=== PATIENT | female | born 1980 | race Caucasian/White ===

== ENCOUNTER 2016-12-19 05:18 | Emergency (ER) | payer OTHER ==
[~2016-12-19] VITALS: Ht 152.4 cm; Wt 64.0 kg
[~2016-12-19 05:18] MED LIST: ACET325S PO; ACET500C5 PO; ALBU8.5H3 INH; AZIT250T6 PO; AZIT250T94 PO; BACTDS PO; CIPR500T4 PO; D-ME473S18 PO; FLUT9.9S NASAL; HYDR-906 PO; HYDR28OI7 TP; IBUP-1542 PO; IBUP-1706 PO; NAPR-260 PO; PANT40TA3 PO; POLY10DR19 RIGHT EYE; UDROBDM PO
[2016-12-19 05:21] VITALS: Ht 152.4 cm; Wt 64.0 kg
[2016-12-19] MEDS ORDERED: SOD CHLORIDE 0.9% 1,000 ML IV ONE (06:00)
[2016-12-19] MEDS ORDERED: DIPHENHYDRAMINE 50 MG INJ IV ONE (06:00)
[2016-12-19] MEDS ORDERED: METOCLOPRAMIDE 10 MG INJ IV ONE (06:00)
[2016-12-19 06:15] LABS: ADD SCAN DIFF NO
[2016-12-19 06:27] LABS: BASOPHILS % 0.4 % (0.0-2.0); EOSINOPHILS # 0.1 10^3/ul (0.0-0.5); HEMATOCRIT 36.8 % (37.0-47.0); HEMOGLOBIN 13.1 g/dl (12.0-16.0); LYMPHOCYTES # 2.5 10^3/ul (0.8-2.9); LYMPHOCYTES % 24.9 % (15.0-51.0); MEAN CORPUSCULAR HEMOGLOBIN 30.1 pg (29.0-33.0); MEAN CORPUSCULAR HGB CONC 35.6 g/dl (32.0-37.0); MEAN CORPUSCULAR VOLUME 84.6 fl (82.0-101.0); MEAN PLATELET VOLUME 10.5 fl (7.4-10.4); MONOCYTE # 0.7 10^3/ul (0.3-0.9); NEUTROPHIL # 6.8 10^3/ul (1.6-7.5); NEUTROPHILS % 66.3 % (39.0-77.0); PLATELET COUNT 308 10^3/UL (140-415); RED BLOOD COUNT 4.35 10^6/ul (4.20-5.40); RED CELL DISTRIBUTION WIDTH 12.4 % (11.5-14.5); WHITE BLOOD COUNT 10.2 10^3/ul (4.8-10.8)
[2016-12-19 06:37] LABS: ADD UMIC YES; URINE BLOOD (Dip) 1+ (NEGATIVE); URINE COLOR LT. YELLOW (YELLOW); URINE GLUCOSE (Dip) NEGATIVE (NEGATIVE); URINE KETONES (Dip) 3+ (NEGATIVE); URINE LEUKOCYTE ESTERASE (Dip) 1+ (NEGATIVE); URINE NITRITE (Dip) NEGATIVE (NEGATIVE); URINE UROBILINOGEN (Dip) 0.2 E.U./dL (0.1-1.0)
[2016-12-19 06:40] LABS: ALBUMIN 4.5 g/dl (3.3-4.9); POTASSIUM 3.6 mmol/L (3.5-5.1)
[2016-12-19 06:42] LABS: CREATININE 0.6 mg/dl (0.44-1.00)
[2016-12-19 06:43] LABS: ALBUMIN/GLOBULIN RATIO 1.15; BILIRUBIN,INDIRECT 0.7 mg/dl (0-1.1); BILIRUBIN,TOTAL 0.7 mg/dl (0.2-1.3); CALCIUM 9.6 mg/dl (8.4-10.2); TOTAL PROTEIN 8.4 g/dl (6.1-8.1)
[2016-12-19 06:56] LABS: URINE BILIRUBIN (Dip) NEGATIVE (NEGATIVE)
[2016-12-19 06:59] LABS: URINE TOTAL PROTEIN (Dip) 1+ (NEGATIVE)
[2016-12-19 07:02] LABS: BACTERIA,URINE MANY; SQUAMOUS EPITHELIAL CELL,UR MANY; URINE RBCS 0-2 /HPF (0)
--- NOTE | 2016-12-19 07:23 | RADRPT ---
PROCEDURE: First trimester obstetrical ultrasound. CLINICAL INDICATION: , pelvic pain TECHNIQUE: Transabdominal motta scale and color Doppler ultrasound of the uterus . The patient ref used transvaginal examination. COMPARISON: Pelvic ultrasound 09/24/2016 FINDINGS: A single intrauterine gestation is present within the uterine fundus. No evidence of extrauterine gestation. Mean sac diameter: 2.58 cm [place]-rump length: 1.77 cm heart rate: 179 Beats per minute A small subchorionic hemorrhage is present. 1.5 cm intramural and 2.4 cm probable subserosal pedunculated fibroid again noted. Ovaries are not identified. Free fluid: None. IMPRESSION: Single intrauterine gestation with an estimated gestational age of 8 weeks 0 days by ultrasound indira rader. Small subchorionic hemorrhage. RPTAT: AADD .Bean Dash MD, MD Date Time Electronically viewed and signed by .Bean Dash MD, on 12/19/2016 07:22 .B/
--- NOTE | 2016-12-19 07:43 | ERD ---
ER Documentation Chief Complaint Date/Time DATE: 12/19/16 TIME: 07:42 Chief Complaint 8 wks , painful urination x 1 month HPI 36-year-old female currently 8 weeks gestation presents the emergency department complaining of dysuria, urinary frequency 1 month. Patient states that she was seen by her primary care physician who prescribed her antibiotics for UTI however she was unable to begin antibiotic therapy as she was too nauseated to take the medication. Patient also reports intermittent epigastric burning 4 out of 10 pain. Patient states she has a history of gastritis and has experienced these symptoms many times before. Patient is not currently taking any thing to control the symptoms. Patient states she has also not been taking any medication to control her nausea. Patient denies any vaginal bleeding, fever, chills, diarrhea, other abdominal pain, back pain, lethargy, dizziness, edema, or headache. ROS All systems reviewed and are negative except as per history of present illness. Medications Home Meds Active Scripts Cephalexin* (Cephalexin* Susp) 250 Mg/5 Ml Susp.recon, 10 ML PO Q8 for 7 Days, BOTTLE Prov:ALEXUS MENDEZ PA-C 12/19/16 Ondansetron (Ondansetron Odt) 4 Mg Tab.rapdis, 4 MG PO Q6H Y for NAUSEA AND/OR VOMITING, #30 TAB Prov:ALEXUS MENDEZ PA-C 12/19/16 Ranitidine Hcl* (Zantac*) 150 Mg Tablet, 75 MG PO BID Y for EPIGASTRIC PAIN, # 30 TAB Prov:ALEXUS MENDEZ PA-C 12/19/16 Sucralfate* (Carafate*) 1 Gm Tab, 1 GM PO QID for 28 Days, TAB Prov:ALEXUS MENDEZ PA-C 12/19/16 Hydrocodone/Acetaminophen ([place] 5-325 Tablet) 1 Each Tablet, 1 TAB PO Q6H Y for PAIN, #7 TAB Prov:ELAYNE BALLESTEROS PA-C 09/24/16 Naproxen* (Naprosyn*) 500 Mg Tablet, 500 MG PO BID Y for PAIN AND/OR INFLAMMATION, #30 TAB Prov:ELAYNE BALLESTEORS PA-C 09/24/16 Albuterol Sulfate* (Proair HFA*) 8.5 Gm Hfa.aer.ad, 2 PUFF INH Q4, #1 INHALER Prov:XENIA MOORE Therese 09/17/16 Dextromethorphan Hb-Promethazine Hcl (Promethazine DM Syrup) 473 Ml Syrup, 10 ML PO Q6H Y for COUGH, #8 OZ Prov:XENIA MOORE There[place] 09/17/16 Acetaminophen* (Tylophen*) 500 Mg Capsule, 2 CAP PO Q8H Y for PAIN AND OR ELEVATED TEMP, #20 CAP Prov:TERESA,XENIA C 09/17/16 Polymyxin B Sulfate-TMP* (Polymyxin B-TMP Eye Drops*) 10 Ml Drops, 1 DROP RIGHT EYE QID for 7 Days, EA Prov:QUE WEAVER MD 07/07/16 Azithromycin* (Zithromax*) 250 Mg Tablet, 250 MG PO .ZPACK DIRECTED, #6 TAB TAKE 500 MG (2 TABS) THE FIRST DAY THEN 250 MG (1 TAB) DAYS 2-5 Prov:QUE WEAVER MD 07/07/16 Fluticasone Propionate (Flonase Allergy Relief) 9.9 Ml [place].susp, 1 SPRAY NASAL DAILY for 10 Days, #1 BOTTLE TO EACH NOSTRIL Prov:QUE WEAVER MD 07/07/16 Ibuprofen* (Motrin*) 600 Mg Tab, 600 MG PO Q6, #15 TAB Prov:QUE WEAVER MD 07/07/16 Pantoprazole* (Protonix*) 40 Mg Tablet.dr, 40 MG PO DAILY, #20 TAB Prov:KAREY RIVERA MD 12/08/15 Ciprofloxacin Hcl* (Ciprofloxacin Hcl*) 500 Mg Tablet, 500 MG PO BID for 7 Days , TAB Prov:KAREY RIVERA MD 12/08/15 Azithromycin* (Azithromycin*) 250 Mg Tablet, 250 MG PO DAILY for If not better in 2-3 days for 4 Days, TAB 0 Refills 2 tablets by mouth on day 1 and 1 tablet by mouth on days 2-4 Prov:REGINALD SULLIVAN PA-C 08/07/15 Guaifenesin-Dextromethorphan* (Robitussin* DM) 100MG/10MG/5ML Syrup, 10 ML PO Q6H Y for COUGH, #240 ML Prov:REGINALD SULLIVAN PA-C 08/07/15 Ibuprofen* Susp (Motrin* Susp) 20 Mg/Ml Susp, 10 ML PO Q6H Y, #240 ML 0 Refills Prov:REGINALD SULLIVAN PA-C 08/07/15 Acetaminophen* (Acetaminophen* Susp) 325 Mg/10.15 Ml Solution, 15 ML PO Q6 Y for PAIN OR TEMP ABOVE 38C, #240 ML 0 Refills Prov:REGINALD SULLIVAN PA-C 08/07/15 Hydrocortisone Acetate (Hydrocortisone) 30 Gm Oint..gm., 30 GM TP BID, #1 Apply to affected area twice a day Prov:DANY BEAUCHAMP PA-C 04/25/15 Sulfamethoxazole-Trimethoprim* (Bactrim* DS) 800-160 Mg Tab, 1 TAB PO BID for 10 Days, TAB Prov:DANY BEAUCHAPM PA-C 04/25/15 Discontinued Scripts Cephalexin* (Keflex*) 500 Mg Capsule, 500 MG PO QID for 7 Days, CAP Prov:ALEXUS MENDEZ PA-C 12/19/16 Allergies Allergies: Coded Allergies: Penicillins (Verified Allergy, Unknown, 09/17/16) PMhx/Soc Medical and Surgical Hx: pt denies Medical Hx, pt denies Surgical Hx Hx Alcohol Use: No Hx Substance Use: No Hx Tobacco Use: No Smoking Status: Never smoker Physical Exam Vitals Vital Signs Date Time Temp Pulse Resp B/P Pulse Ox O2 Delivery O2 Flow Rate FiO2 12/19/16 05:21 98.9 65 20 120/65 99 Physical Exam Const: Well-developed, well-nourished, in no acute distress Head: Atraumatic Eyes: Normal Conjunctiva ENT: Normal External Ears, Nose and Mouth. Neck: Full range of motion..~ No meningismus. Resp: Clear to auscultation bilaterally Cardio: Regular rate and rhythm, no murmurs Abd: Soft, non tender, non distended. Normal bowel sounds Skin: No petechiae or rashes Back: No midline or flank tenderness Ext: No cyanosis, or edema Neur: Awake and alert Psych: Normal Mood and Affect Result Diagram: 12/19/16 0604 12/19/16 0604 Results 24 hrs Laboratory Tests Test 12/19/16 06:00 12/19/16 06:04 Urine Color LT. YELLOW Urine Clarity CLEAR Urine pH 5.5 Urine Specific [place] >=1.030 Urine Ketones 3+ Urine Nitrite NEGATIVE Urine Bilirubin NEGATIVE Urine Urobilinogen 0.2 E.U./dL Urine Leukocyte Esterase 1+ Urine Microscopic RBC 0-2/HPF Urine Microscopic WBC 10-25/HPF Urine Squamous Epithelial Cells MANY Urine Bacteria MANY Urine Hyaline Casts OCCASIONAL Urine Fine Granular Casts OCCASIONAL Urine Hemoglobin 1+ Urine Glucose NEGATIVE% Urine Total Protein 1+ White Blood Count 10.210^3/ul Red Blood Count 4.3510^6/ul Hemoglobin 13.1g/dl Hematocrit 36.8% Mean Corpuscular Volume 84.6fl Mean Corpuscular Hemoglobin 30.1pg Mean Corpuscular Hemoglobin Concent 35.6g/dl Red Cell Distribution Width 12.4% Platelet Count 66481^3/UL Mean Platelet Volume 10.5fl Neutrophils % 66.3% Lymphocytes % 24.9% Monocytes % 7.0% Eosinophils % 1.0% Basophils % 0.4% Nucleated Red Blood Cells % 0.0/100WBC Neutrophils # 6.810^3/ul Lymphocytes # 2.510^3/ul Monocytes # 0.710^3/ul Eosinophils # 0.110^3/ul Basophils # 0.010^3/ul Nucleated Red Blood Cells # 0.010^3/ul Sodium Level 135mmol/L Potassium Level 3.6mmol/L Chloride Level 97mmol/L Carbon Dioxide Level 23mmol/L Anion Gap 19 Blood Urea Nitrogen 10mg/dl Creatinine 0.60mg/dl Glucose Level 85mg/dl Calcium Level 9.6mg/dl Total Bilirubin 0.7mg/dl Direct Bilirubin 0.00mg/dl Indirect Bilirubin 0.7mg/dl Aspartate Amino Transf (AST/SGOT) 25IU/L Alanine Aminotransferase (ALT/SGPT) 34IU/L Alkaline Phosphatase 72IU/L Total Protein 8.4g/dl Albumin 4.5g/dl Globulin 3.90g/dl Albumin/Globulin Ratio 1.15 Beta HCG, Quantitative 370317.0mIU/ml Current Medications Medications (Trade) Dose Ordered Sig/Tracy Route PRN Reason Start Time Stop Time Status Last Admin Dose Admin Sodium Chloride (NS) 1,000 ml @ 1,000 mls/hr Q1H ONCE IV 12/19/16 06:00 12/19/16 06:59 DC 12/19/16 06:04 Metoclopramide HCl (Reglan) 10 mg ONCE ONCE IV 12/19/16 06:00 12/19/16 06:01 DC 12/19/16 06:03 Diphenhydramine HCl (Benadryl) 25 mg ONCE ONCE IV 12/19/16 06:00 12/19/16 06:01 DC 12/19/16 06:04 Procedures/MDM PROCEDURE: First trimester obstetrical ultrasound. CLINICAL INDICATION: , pelvic pain TECHNIQUE: Transabdominal motta scale and color Doppler ultrasound of the uterus . The patient refused transvaginal examination. COMPARISON: Pelvic ultrasound 09/24/2016 FINDINGS: A single intrauterine gestation is present within the uterine fundus. No evidence of extrauterine gestation. Mean sac diameter: 2.58 cm [place]-rump length: 1.77 cm heart rate: 179 Beats per minute A small subchorionic hemorrhage is present. 1.5 cm intramural and 2.4 cm probable subserosal pedunculated fibroid again noted. Ovaries are not identified. Free fluid: None. IMPRESSION: Single intrauterine gestation with an estimated gestational age of 8 weeks 0 days by ultrasound criteria. Small subchorionic hemorrhage. RPTAT: AADD .Bean Dash MD, MD Date Time Electronically viewed and signed by .Bean Dash MD, MD on 12/19/2016 07:22 .B/ CC: DANY BEAUCHAMP PA-C Patient received a bolus of fluid as well as Benadryl and Reglan while in the emergency department. Patient reports significant improvement of symptoms. Vital signs reviewed. Patient is normotensive, non-tachycardic, non-hypoxic and afebrile. CBC showed no evidence of systemic infection or severe anemia. CMP showed no evidence of electrolyte abnormalities, severe acidosis, alkalosis , renal failure, or liver disease. UA showed no evidence of acute leukocytosis and hematuria. Vaginal ultrasound revealed single intrauterine viable estimated 8 weeks gestation. I have low suspicion for ectopic , spontaneous , ovarian torsion, small bowel obstruction, perforated ulcer, tubo-ovarian abscess, pelvic inflammatory disease, major systemic infection or sepsis. Patient well-appearing and reports improvement of symptoms posttreatment in the emergency department. I will provide the patient with antinausea medications so that she can administer antibiotic therapy for her urinary tract infection. Patient to follow-up with primary care and [facility] in 1-2 days. I will also supply the patient with Carafate for symptomatic relief of her GERD symptoms. Patient originally stated an allergy to penicillin however when asked to describe her allergy she noted a mild itchy rash on her hands. Patient denied any history of anaphylaxis, facial swelling. I discussed the potential for rash and itchiness with Keflex as well. Patient instructed to take Benadryl as needed. Based on patient's history of present illness and physical examination the decision was made to discharge. The patient was re-evaluated after ED treatment and stabilizing measures, and symptoms have improved. There is no evidence of life threatening injuries or illnesses at this time. On re-examination, patient resting in no distress, stable vital signs, reports feeling better and safe for discharge with outpatient follow up with PMD in 1-2 days. Patient given return precautions. ALEXUS MENDEZ PA-C Dec 19, 2016 07:43
[2016-12-19] MEDS ORDERED: ONDA4TAB14 PO (07:57)
[2016-12-19] MEDS ORDERED: RANI150T9 PO (07:57)
[2016-12-19] MEDS ORDERED: CEPH-443 PO (07:57)
[2016-12-19] MEDS ORDERED: SUCR1TAB56 PO (07:57)
[2016-12-19] MEDS ORDERED: CEPH250S33 PO (07:59)
[2016-12-19 08:01] VITALS: BP 102/56; PULSE 79; RESP 18; TEMP 98.2
== END 2016-12-19 08:10 | disposition home or self-care (01) ==
LOC: FTE 05:18
DX: O99.89 Other specified diseases and conditions complicating pregnancy, childbirth and the puerperium (principal); R30.0 Dysuria; R10.2 Pelvic and perineal pain; Z3A.08 8 weeks gestation of pregnancy
CPT/HCPCS: 36415; 76801; 80053; 81001; 84702; 85025; 86900; 86901; 87086; 96361; 96374; 96375; J1200; J2765; J7030; Z7502; 81003

== ENCOUNTER 2016-12-29 13:08 | Emergency (ER) | payer OTHER ==
[~2016-12-29] VITALS: Ht 157.5 cm; Wt 67.7 kg
[~2016-12-29 13:08] MED LIST changes: +CEPH250S33 PO; +ONDA4TAB14 PO; +RANI150T9 PO; +SUCR1TAB56 PO
[2016-12-29 13:12] VITALS: Ht 157.5 cm; Wt 67.7 kg
[2016-12-29] MEDS ORDERED: METOCLOPRAMIDE 10 MG INJ IV STA (14:38)
[2016-12-29] MEDS ORDERED: SOD CHLORIDE 0.9% 1,000 ML IV STA ×2 (14:38→16:57)
[2016-12-29] MEDS: ACETAMINOPHEN 500 MG TAB PO STA ×2 (14:38→15:46)
[2016-12-29] MEDS ORDERED: METO10TA92 PO (14:50)
--- NOTE | 2016-12-29 14:53 | ERD ---
ER Documentation Chief Complaint Date/Time DATE: 12/29/16 TIME: 14:50 Chief Complaint VOMITING, 10 WEEKS (PAIGE SHETTY PA-C) HPI Patient is a 36-year-old female, , approximately 10 weeks , presents emergency department with nausea, vomiting and diarrhea. Patient states that she has had nausea and vomiting throughout her . Patient states that she feels nauseous today however she denies any vomiting today. Patient states she last vomited yesterday. She reports vomiting throughout her . Patient states she is not taking any Reglan given the "side effects. " Patient also states she has had 2 days of nonbloody nonmucousy diarrhea. Patient states that approximately 4-5 episodes per day. Patient states she has a decreased appetite. Patient states she last ate a meal 3 days ago. Patient denies any cough, rhinorrhea, sore throat, ear pain. Patient does report generalized body aches and back pain. Patient denies any saddle anesthesia, urinary incontinence or stool incontinence. Patient denies any recent falls or trauma. Patient states that she has been seeing her RN DELIVERY routinely. Patient states 1 month ago she was diagnosed with a UTI. Patient is requesting that her urine rechecked for resolution of her symptoms. (PAIGE SHETTY PA-C) ROS All systems reviewed and are negative except as per history of present illness. (PAIGE SHETTY PA-C) Medications Home Meds Active Scripts Cephalexin* (Keflex*) 500 Mg Capsule, 500 MG PO QID for 7 Days, CAP Prov:PAIGE SHETTY PA-C 12/29/16 Metoclopramide* (Reglan*) 10 Mg Tablet, 10 MG PO Q6 Y for NAUSEA AND/OR VOMITING , #10 TAB Prov:PAIGE SHETTY PA-C 12/29/16 Cephalexin* (Cephalexin* Susp) 250 Mg/5 Ml Susp.recon, 10 ML PO Q8 for 7 Days, BOTTLE Prov:ALEXUS MENDEZ PA-C 12/19/16 Ondansetron (Ondansetron Odt) 4 Mg Tab.rapdis, 4 MG PO Q6H Y for NAUSEA AND/OR VOMITING, #30 TAB Prov:ALEXUS MENDEZ PA-C 12/19/16 Ranitidine Hcl* (Zantac*) 150 Mg Tablet, 75 MG PO BID Y for EPIGASTRIC PAIN, # 30 TAB Prov:ALEXUS MENDEZ PA-C 12/19/16 Sucralfate* (Carafate*) 1 Gm Tab, 1 GM PO QID for 28 Days, TAB Prov:ALEXUS MENDEZ PA-C 12/19/16 Hydrocodone/Acetaminophen ([place] 5-325 Tablet) 1 Each Tablet, 1 TAB PO Q6H Y for PAIN, #7 TAB Prov:ELAYNE BALLESTEROS PA-C 09/24/16 Naproxen* (Naprosyn*) 500 Mg Tablet, 500 MG PO BID Y for PAIN AND/OR INFLAMMATION, #30 TAB Prov:ELAYNE BALLESTEROS PA-C 09/24/16 Albuterol Sulfate* (Proair HFA*) 8.5 Gm Hfa.aer.ad, 2 PUFF INH Q4, #1 INHALER Prov:XENIA MOORE 09/17/16 Dextromethorphan Hb-Promethazine Hcl (Promethazine DM Syrup) 473 Ml Syrup, 10 ML PO Q6H Y for COUGH, #8 OZ Prov:XENIA MOORE 09/17/16 Acetaminophen* (Tylophen*) 500 Mg Capsule, 2 CAP PO Q8H Y for PAIN AND OR ELEVATED TEMP, #20 CAP Prov:XENIA MOORE 09/17/16 Polymyxin B Sulfate-TMP* (Polymyxin B-TMP Eye Drops*) 10 Ml Drops, 1 DROP RIGHT EYE QID for 7 Days, EA Prov:QUE CELESTE MD 07/07/16 Azithromycin* (Zithromax*) 250 Mg Tablet, 250 MG PO .ZPACK DIRECTED, #6 TAB TAKE 500 MG (2 TABS) THE FIRST DAY THEN 250 MG (1 TAB) DAYS 2-5 Prov:QUE CELESTE MD 07/07/16 Fluticasone Propionate (Flonase Allergy Relief) 9.9 Ml [place].susp, 1 SPRAY NASAL DAILY for 10 Days, #1 BOTTLE TO EACH NOSTRIL Prov:QUE CELESTE MD 07/07/16 Ibuprofen* (Motrin*) 600 Mg Tab, 600 MG PO Q6, #15 TAB Prov:QUE CELESTE MD 07/07/16 Pantoprazole* (Protonix*) 40 Mg Tablet.dr, 40 MG PO DAILY, #20 TAB Prov:KAREY IRVERA MD 12/08/15 Ciprofloxacin Hcl* (Ciprofloxacin Hcl*) 500 Mg Tablet, 500 MG PO BID for 7 Days , TAB Prov:KAREY RIVERA MD 12/08/15 Azithromycin* (Azithromycin*) 250 Mg Tablet, 250 MG PO DAILY for If not better in 2-3 days for 4 Days, TAB 0 Refills 2 tablets by mouth on day 1 and 1 tablet by mouth on days 2-4 Prov:REGINALD SULLIVAN PA-C 08/07/15 Guaifenesin-Dextromethorphan* (Robitussin* DM) 100MG/10MG/5ML Syrup, 10 ML PO Q6H Y for COUGH, #240 ML Prov:REGINALD SULLIVAN PA-C 08/07/15 Ibuprofen* Susp (Motrin* Susp) 20 Mg/Ml Susp, 10 ML PO Q6H Y, #240 ML 0 Refills Prov:REGINALD SULLIVAN PA-C 08/07/15 Acetaminophen* (Acetaminophen* Susp) 325 Mg/10.15 Ml Solution, 15 ML PO Q6 Y for PAIN OR TEMP ABOVE 38C, #240 ML 0 Refills Prov:REGINALD SULLIVAN PA-C 08/07/15 Hydrocortisone Acetate (Hydrocortisone) 30 Gm Oint..gm., 30 GM TP BID, #1 Apply to affected area twice a day Prov:DANY ASENCIO PA-C 04/25/15 Sulfamethoxazole-Trimethoprim* (Bactrim* DS) 800-160 Mg Tab, 1 TAB PO BID for 10 Days, TAB Prov:DANY ASENCIO PA-C 04/25/15 Allergies Allergies: Coded Allergies: Penicillins (Verified Allergy, Unknown, 09/17/16) PMhx/Soc Medical and Surgical Hx: pt denies Medical Hx, pt denies Surgical Hx Hx Alcohol Use: No Hx Substance Use: No Hx Tobacco Use: No Smoking Status: Never smoker (PAIGE SHETTY PA-C) FmHx Family History: No diabetes (PAIGE SHETTY PA-C) Physical Exam Vitals Vital Signs Date Time Temp Pulse Resp B/P Pulse Ox O2 Delivery O2 Flow Rate FiO2 12/29/16 19:34 98.1 89 22 102/61 99 Room Air 12/29/16 18:04 90 15 106/47 100 Room Air 12/29/16 13:12 97.9 74 20 122/72 99 (DANY ASENCIO PA-C) Physical Exam GENERAL: Well-developed, well-nourished female. Appears in no acute distress. Speaking in full sentences HEAD: Normocephalic, atraumatic. EYES: Pupils are equally reactive bilaterally. EOMs grossly intact. No conjunctival erythema. No Conjunctival pallor ENT: Moist mucous membranes. No uvula deviation. No kissing tonsils. NECK: Supple. No meningismus. Normal range of motion of the neck. LUNG: Clear to auscultation bilaterally. No rhonchi, wheezing, rales or coarse breath sounds. HEART: Regular rate and rhythm. No murmurs, rubs or gallops. ABDOMEN: No scars, ecchymosis or rashes noted. Soft, nontender, and nondistended. Positive bowel sounds in all four quadrants. No rebound tenderness , no guarding. (-) McBurney's point tenderness. No CVA tenderness. BACK: No midline tenderness. Tender to palpation of bilateral paraspinous muscles of lumbar region. EXTREMITIES: Equal pulses bilaterally. No peripheral clubbing, cyanosis or edema. No unilateral leg swelling. NEUROLOGIC: Alert and oriented. Moving all four extremities without any difficulty. Normal speech. Steady gait. SKIN: Normal color. Warm and dry. No rashes or lesions. (PAIGE SHETTY PA-C) Result Diagram: 12/29/16 1555 12/29/16 1555 Results 24 hrs Laboratory Tests Test 12/29/16 15:55 White Blood Count 9.110^3/ul Red Blood Count 4.3410^6/ul Hemoglobin 13.0g/dl Hematocrit 35.7% Mean Corpuscular Volume 82.3fl Mean Corpuscular Hemoglobin 30.0pg Mean Corpuscular Hemoglobin Concent 36.4g/dl Red Cell Distribution Width 12.6% Platelet Count 42729^3/UL Mean Platelet Volume 10.7fl Neutrophils % 68.6% Lymphocytes % 19.4% Monocytes % 10.3% Eosinophils % 1.0% Basophils % 0.3% Nucleated Red Blood Cells % 0.0/100WBC Neutrophils # 6.210^3/ul Lymphocytes # 1.810^3/ul Monocytes # 0.910^3/ul Eosinophils # 0.110^3/ul Basophils # 0.010^3/ul Nucleated Red Blood Cells # 0.010^3/ul Urine Color YELLOW Urine Clarity SLIGHTLY CLOUDY Urine pH 6.0 Urine Specific [place] 1.025 Urine Ketones 40 Urine Nitrite NEGATIVE Urine Bilirubin NEGATIVE Urine Urobilinogen 0.2 E.U./dL Urine Leukocyte Esterase 3+ Urine Microscopic RBC 2-5/HPF Urine Microscopic WBC >50/HPF Urine Squamous Epithelial Cells MANY Urine Bacteria MODERATE Urine Hemoglobin 1+ Urine Glucose NEGATIVE% Urine Total Protein 1+ Sodium Level 130mmol/L Potassium Level 2.8mmol/L Chloride Level 89mmol/L Carbon Dioxide Level 23mmol/L Anion Gap 21 Blood Urea Nitrogen 5mg/dl Creatinine 0.60mg/dl Glucose Level 99mg/dl Calcium Level 9.4mg/dl Magnesium Level 2.1mg/dl Total Bilirubin 0.3mg/dl Direct Bilirubin 0.00mg/dl Indirect Bilirubin 0.3mg/dl Aspartate Amino Transf (AST/SGOT) 58IU/L Alanine Aminotransferase (ALT/SGPT) 90IU/L Alkaline Phosphatase 95IU/L Total Protein 8.8g/dl Albumin 4.7g/dl Globulin 4.10g/dl Albumin/Globulin Ratio 1.14 Lipase 134U/L Beta HCG, Quantitative 289485.0mIU/ml Current Medications Medications (Trade) Dose Ordered Sig/Tracy Route PRN Reason Start Time Stop Time Status Last Admin Dose Admin Sodium Chloride (NS) 1,000 ml @ 1,000 mls/hr Q1H STAT IV 12/29/16 14:38 12/29/16 17:07 DC 12/29/16 15:45 Metoclopramide HCl (Reglan) 10 mg ONCE STAT IV 12/29/16 14:38 12/29/16 14:41 DC 12/29/16 15:46 Diphenhydramine HCl (Benadryl) 25 mg ONCE ONCE IV 12/29/16 15:00 12/29/16 15:01 DC Acetaminophen (Tylenol Tab) 1,000 mg ONCE STAT PO 12/29/16 14:38 12/29/16 14:41 DC Potassium Chloride (Klor-Con 20) 40 meq ONCE STAT PO 12/29/16 16:35 12/29/16 16:41 DC 12/29/16 16:51 Cephalexin (Keflex) 500 mg ONCE ONCE PO 12/29/16 17:00 12/29/16 17:02 DC 12/29/16 16:53 Potassium Chloride 20 meq 20 meq ONCE STAT PO 12/29/16 16:57 12/29/16 17:07 DC 12/29/16 17:46 Sodium Chloride 1,000 ml @ 1,000 mls/hr Q1H STAT IV 12/29/16 16:57 12/29/16 17:56 DC Sodium Chloride (NS) 1,000 ml @ 1,000 mls/hr Q1H ONCE IV 12/29/16 17:00 12/29/16 17:59 DC 12/29/16 17:58 (DANY ASENCIO PA-C) Procedures/MDM ED COURSE: The patient was stable throughout ED course. I kept the patient and/or family informed of laboratory and diagnostic imaging results throughout the ED course. EKG: Read by Dr. Celeste, attending physician. EKG shows normal sinus rhythm at a rate of 81 bpm No arrhythmias, acute ST elevations or T wave changes were noted. DIAGNOSTIC IMAGING: Read by radiologist. DIAGNOSTIC IMAGING REPORT Patient: WHIT WOMACK : 1980 Age: 36 Sex: F MR #: [id number] DOS: 12/29/16 0000 Ordering MD: PAIGE SHETTY PA-C Location: [facility] Room/Bed: PROCEDURE: US OB. CLINICAL INDICATION: Pelvic pain and vomiting TECHNIQUE: Transabdominal and transvaginal views of the pelvis are available for review. COMPARISON: 12/19/2016 FINDINGS: There is a single intrauterine gestation with the crown-rump length measuring 3.2 cm and the gestational sac measuring 4 cm, corresponding to a gestational age of 9 weeks and 6 days. The heart rate is noted at 185 bpm. There is a tiny 8 mm area of subchorionic hemorrhage noted. There is a 2.8 cm fibroid within the uterus. The ovaries are normal in size and echogenicity. Normal Doppler flow is identified in both ovaries. The right ovary measures 2.6 x 2.1 x 1.9 cm. The left ovary measures 2.1 x 1.7 x 1.7 cm. There is no free fluid. RPTAT: AA IMPRESSION: Single live intrauterine with an estimated gestational age of 9 weeks and 6 days, based on ultrasound measurements. BERTA based on ultrasound measurements is 07/28/17. Tiny area of subchorionic hemorrhage. .Bulmaro Lomax MD, Date Time Electronically viewed and signed by .Bulmaro Lomax MD, on 12/29/2016 15: 26 .S/ CC: PAIGE SHETTY PA-C MEDICATIONS GIVEN: IV fluids, Reglan, Potassium, Keflex She was offered Benadryl as well as Tylenol for her symptoms. Patient refused these medications. Patient states the Benadryl would make her sleepy. Patient states that she does not eat anything for her pain. Patient was noted to continue have a UTI. Patient was given first dose of Keflex here in the emergency department. Upon discussing patient's UA results with her, patient states she did not complete the full course of Keflex which was prescribed to her at her last emergency department visit for a urinary tract infection. I stressed to the patient the importance of taking medication as prescribed. I stressed the patient the importance of taking the full course of medication. Patient tolerated medication well with no adverse reactions. No additional episodes of vomiting or diarrhea were noted during the ED course. She was observed by myself as well as nursing staff eating sandwich and drinking juice at bedside. MEDICAL DECISION MAKING: This is a 36-year-old female, , who presents emergency department with vomiting, diarrhea, generalized body aches. Patient states she has had vomiting throughout her however she is not taking any anti-emetics. Vital signs were reviewed. Patient is afebrile. CBC showed no evidence of systemic infection or severe anemia. CMP showed sodium of 130, potassium of 2.8, BUN 5, Anion gap 21, AST 58, ALT 90. Lipase showed no evidence of acute pancreatitis. I discussed the patient's laboratory findings with my supervising physician Dr. Baum. Melodie Baum advised me to give the patient was given potassium chloride 60 mEq PO here in the emergency department. Patient was given 2 L of IV fluids. She was noted to be eating as well as drinking fluids without any difficulty while in the ED. No additional episodes of vomiting were noted. She was nontoxic [id number] prior to discharge. Urinalysis showed 3+ leukocyte esterase, + WBC. Low suspicion for pyelonephritis or nephrolithiasis. Pelvic ultrasound showed Single live intrauterine with an estimated gestational age of 9 weeks and 6 days, based on ultrasound measurements.BERTA based on ultrasound measurements is . Tiny area of subchorionic hemorrhage. At this time, patient's presentation is most consistent with live IUP, hyperemesis gravidarum, hypokalemia, UTI. The importance of medication compliance was discussed with the patient. Patient was advised to complete full course of antibiotics as prescribed. Patient was advised to follow-up with her RN DELIVERY in the next 1-2 days. Low suspicion for demise, threatened , cholelithiasis, cholecystitis, nephrolithiasis, pyelonephritis, HELLP syndrome, appendicitis, ectopic . Magnesium pending. Patient will be signed out to Dany Asencio PA-C. Patient stable at this time. PRESCRIPTIONS: Keflex, Reglan DISCHARGE: At this time, patient is stable for discharge and outpatient management. Patient advised to drink plenty of fluids and eat 2 bananas per day. Patient encouraged to take medications as needed for nausea and vomiting. I have instructed the patient to follow-up with his/her primary care physician/OBGYN in 1-2 days. I have instructed the patient to promptly return to the ER at any time for any new or worsening symptoms including increased pain, nausea, vomiting, diarrhea, fever, weakness or LOC. The patient and/or family expressed understanding of and agreement with this plan. All questions were answered. Home care instructions were provided. (PAIGE SHETTY PA-C) Magnesium was signed out to me by previous provider. It was normal, she is well -appearing, well-hydrated, no episodes of further emesis in the emergency department and will be discharged home. (DANY ASENCIO PA-C) Departure Diagnosis: Primary Impression: Nausea/vomiting in Additional Impressions: Hypokalemia Diarrhea Diarrhea type: unspecified type Qualified Code: R19.7 - Diarrhea, unspecified type UTI (urinary tract infection) Urinary tract infection type: site unspecified Hematuria presence: without hematuria Qualified Code: N39.0 - Urinary tract infection without hematuria, site unspecified Condition: Stable Referrals: [facility] Additional Instructions: Eat 2 bananas per day to help increase potassium levels for the next week. Call your primary care doctor/OBGYN TOMORROW for an appointment during the next 1-2 days.See the doctor sooner or return here if your condition worsens before your appointment time. PAIGE SHETTY PA-C Dec 29, 2016 14:53 DANY ASENCIO PA-C Dec 29, 2016 20:00
--- NOTE | 2016-12-29 15:27 | RADRPT ---
PROCEDURE: US OB. CLINICAL INDICATION: Pelvic pain and vomiting TECHNIQUE: Transabdominal and transvaginal views of the pelvis are available for review. COMPARISON: 12/19/2016 FINDINGS: There is a single intrauterine gestation with the crown-rump length measuring 3.2 cm and the gestat ional sac measuring 4 cm, corresponding to a gestational age of 9 weeks and 6 days. The heart rate is noted at 185 bpm. There is a tiny 8 mm area of subchorionic hemorrhage noted. There is a 2.8 cm fibroid within the uterus. The ovaries are normal in size and echogenicity. Normal Doppler flow is identified in both ovaries. The right ovary measures 2.6 x 2.1 x 1.9 cm. The left ovary measures 2.1 x 1.7 x 1.7 cm. There is no free fluid. RPTAT: AA IMPRESSION: Single live intrauterine with an estimated gestational age of 9 weeks and 6 days, based on ultrasound measurements. BERTA based on ultrasound measurements is 07/28/17. Tiny area of subchorionic hemorrhage. .Bulmaro Lomax MD, MD Date Time Electronically viewed and signed by .Bulmaro Lomax MD, on 12/29/2016 15:26 .S/
[2016-12-29] MEDS: DIPHENHYDRAMINE 50 MG INJ IV ONE ×2 (15:46→15:50)
[2016-12-29 16:02] LABS: ADD SCAN DIFF NO
[2016-12-29 16:05] LABS: BASOPHILS % 0.3 % (0.0-2.0); EOSINOPHILS # 0.1 10^3/ul (0.0-0.5); HEMATOCRIT 35.7 % (37.0-47.0); LYMPHOCYTES # 1.8 10^3/ul (0.8-2.9); LYMPHOCYTES % 19.4 % (15.0-51.0); MEAN CORPUSCULAR HGB CONC 36.4 g/dl (32.0-37.0); MEAN CORPUSCULAR VOLUME 82.3 fl (82.0-101.0); MEAN PLATELET VOLUME 10.7 fl (7.4-10.4); MONOCYTE # 0.9 10^3/ul (0.3-0.9); MONOCYTES % 10.3 % (0.0-11.0); NEUTROPHIL # 6.2 10^3/ul (1.6-7.5); NEUTROPHILS % 68.6 % (39.0-77.0); PLATELET COUNT 296 10^3/UL (140-415); RED BLOOD COUNT 4.34 10^6/ul (4.20-5.40); RED CELL DISTRIBUTION WIDTH 12.6 % (11.5-14.5); WHITE BLOOD COUNT 9.1 10^3/ul (4.8-10.8)
[2016-12-29 16:10] LABS: ADD UMIC YES; URINE BILIRUBIN (Dip) NEGATIVE (NEGATIVE); URINE BLOOD (Dip) 1+ (NEGATIVE); URINE COLOR YELLOW (YELLOW); URINE GLUCOSE (Dip) NEGATIVE (NEGATIVE); URINE KETONES (Dip) 40 (NEGATIVE); URINE LEUKOCYTE ESTERASE (Dip) 3+ (NEGATIVE); URINE NITRITE (Dip) NEGATIVE (NEGATIVE); URINE TOTAL PROTEIN (Dip) 1+ (NEGATIVE); URINE UROBILINOGEN (Dip) 0.2 E.U./dL (0.1-1.0)
[2016-12-29 16:20] LABS: ALBUMIN 4.7 g/dl (3.3-4.9)
[2016-12-29 16:22] LABS: BILIRUBIN,INDIRECT 0.3 mg/dl (0-1.1); BILIRUBIN,TOTAL 0.3 mg/dl (0.2-1.3); CREATININE 0.6 mg/dl (0.44-1.00)
[2016-12-29 16:23] LABS: ALBUMIN/GLOBULIN RATIO 1.14; CALCIUM 9.4 mg/dl (8.4-10.2); TOTAL PROTEIN 8.8 g/dl (6.1-8.1)
[2016-12-29 16:25] LABS: BACTERIA,URINE MODERATE; SQUAMOUS EPITHELIAL CELL,UR MANY
[2016-12-29 16:29] LABS: POTASSIUM 2.8 mmol/L (3.5-5.1)
[2016-12-29] MEDS ORDERED: POTASSIUM CHLORIDE (SR) 20 MEQ TAB PO STA ×2 (16:35→16:57)
[2016-12-29] MEDS ORDERED: SOD CHLORIDE 0.9% 1,000 ML IV ONE (17:00)
[2016-12-29] MEDS ORDERED: CEPHALEXIN 500 MG CAP PO ONE (17:00)
[2016-12-29] MEDS ORDERED: CEPH-443 PO (18:29)
[2016-12-29 19:34] VITALS: BP 102/61; PULSE 89; RESP 22; TEMP 98.1
== END 2016-12-29 19:35 | disposition home or self-care (01) ==
LOC: FTE 13:08
DX: O21.9 Vomiting of pregnancy, unspecified (principal); E87.6 Hypokalemia; O99.281 Endocrine, nutritional and metabolic diseases complicating pregnancy, first trimester; R19.7 Diarrhea, unspecified; O23.41 Unspecified infection of urinary tract in pregnancy, first trimester; O99.89 Other specified diseases and conditions complicating pregnancy, childbirth and the puerperium; R10.2 Pelvic and perineal pain; Z3A.09 9 weeks gestation of pregnancy
CPT/HCPCS: 36415; 76801; 80053; 81001; 81003; 83690; 83735; 84702; 85025; 93005; 96374; J1200; J2765; J7030; Z7502; Z7610

== ENCOUNTER 2017-05-01 20:36 | Outpatient (CLI) | payer OTHER ==
[~2017-05-01 20:36] MED LIST changes: +CEPH-443 PO; +METO10TA92 PO
[2017-05-01] MEDS ORDERED: PRENAT PO (20:45)
[2017-05-01 21:52] LABS: ADD UMIC NO; UR ASCORBIC ACID NEGATIVE (NEGATIVE); UR BILIRUBIN (Dip) NEGATIVE (NEGATIVE); UR BLOOD (Dip) NEGATIVE (NEGATIVE); UR CLARITY CLEAR (CLEAR); UR COLOR COLORLESS (YELLOW); UR GLUCOSE (Dip) NEGATIVE (NEGATIVE); UR KETONES (Dip) NEGATIVE (NEGATIVE); UR LEUKOCYTE ESTERASE (Dip) NEGATIVE Leu/ul (NEGATIVE); UR NITRITE (Dip) NEGATIVE (NEGATIVE); UR SPECIFIC GRAVITY (Dip) 1.002 (1.003-1.030); UR TOTAL PROTEIN (Dip) NEGATIVE (NEGATIVE); UR UROBILINOGEN (Dip) NEGATIVE (NEGATIVE)
--- NOTE | 2017-05-01 22:28 | RADRPT ---
PROCEDURE: US OB. CLINICAL INDICATION: Size and dates , decreased movements TECHNIQUE: Multiple sonographic images of the pelvis and gravid uterus were obtained. The images were reviewed on a PACS workstation. COMPARISON: 12/29/2016 FINDINGS: There is a single viable intrauterine gestation. Cardiac activity is present with 134 beats per min [place]. There is a breech, head maternal right presentation. The placenta is anterior. There is no evidence for an abruption or placenta previa. There is a normal amount of amniotic fluid with an MANE = 16.1 cm. Measurements were made in order to determine age. The results are as follows: BPD =7.4 cm HC =27.1 cm AC =23.1 cm FL =5.1 cm Estimated gestational age of approximately 28 weeks and 4 days based on ultrasound measurements. Clinical age: 27 weeks and 3 days. The estimated date of delivery is 07/20/2017, based on ultrasound measurements. The EFW = 1118 g, 49.5%, based on LMP age. RPTAT: AA IMPRESSION: Single viable intrauterine gestation of approximately 28 weeks and 4 days based on ultrasound measu rements. .Bulmaro Lomax MD, Date Time Electronically viewed and signed by .Bulmaro Lomax MD, MD on 05/01/2017 22:28 .S/
--- NOTE | 2017-05-01 22:29 | RADRPT ---
PROCEDURE: US OB biophysical profile. CLINICAL INDICATION: decreased movements TECHNIQUE: Multiple sonographic images of the pelvis were obtained. The images were reviewed on a PACS workstation. COMPARISON: No prior studies are available for comparison. FINDINGS: There is a single viable intrauterine gestation. Cardiac activity is present with 154 beats per min [place]. There is a breech, head maternal right presentation. The placenta is anterior. There is no evidence for an abruption or placenta previa. There is a normal amount of amniotic fluid with an MANE = 16.1 cm. Biophysical profile: movement 2/2 tone 2/2. breathing 2/2 MANE 2/2 Total 05/04 RPTAT: AA . IMPRESSION: Normal biophysical profile. . .Bulmaro Lomax MD, MD Date Time Electronically viewed and signed by .Bulmaro Lomax MD, MD on 05/01/2017 22:28 .S/
--- NOTE | 2017-05-02 00:05 | TRIAGE ---
OB Triage Datetime Report Generated by CPN: 05/02/2017 00:05 Datetime: 05/01/2017 21:30 Stage of : OB Triage Datetime: 05/01/2017 20:40 Time of Arrival: 05/01/2017 20:27 EGA: 27.3 Chief Complaint: DFM Movement: Decreased Contractions: Denies/Absent Rupture of Membranes: Denies Vaginal Bleeding: None Vaginal Discharge: Denies Recent Sexual Intercouse: Denies Abdominal Trauma: Not Applicable Patient Complaints: Other Provider Notified: Dr Subramanian Initial Plan: EFM X2, UA, EFW,
--- NOTE | 2017-05-02 00:41 | PN ---
Triage Information Date/Time 05/02/1703/13/36 Reason for visit: DFM Weeks of Gestation 27w3d /Para Diabetes: none Hypertention: none Objective wnl Heart Rate: 130's Contractions: None Results/Medications Results 24 hrs Laboratory Tests Test 05/01/17 20:40 Urine Color COLORLESS Urine Clarity CLEAR Urine pH 7.0 Urine Specific [place] 1.002 L Urine Ketones NEGATIVE Urine Nitrite NEGATIVE Urine Bilirubin NEGATIVE Urine Urobilinogen NEGATIVE Urine Leukocyte Esterase NEGATIVE Urine Hemoglobin NEGATIVE Urine Glucose NEGATIVE Urine Total Protein NEGATIVE Imaging Results MANE 16.1 EFW 1118 Disposition: Discharge Assessment/Plan IUP 27w4d DFM resolved plan discharge home with routine instructions for labor , f/u with her OB LOLIS PEREA MD May 02, 2017 00:41
== END 2017-05-01 23:35 | disposition home or self-care (01) ==
LOC: OBT 20:36 → L-D 20:37 → OBT 23:35
PROVIDERS: ATTEND Obstetrics & Gynecology
DX: O36.8120 Decreased fetal movements, second trimester, not applicable or unspecified (principal); Z3A.27 27 weeks gestation of pregnancy
CPT/HCPCS: 76815; 76818; 81003; Z7500; G0463

== ENCOUNTER 2017-07-12 05:15 | Outpatient (CLI) | payer OTHER ==
[~2017-07-12] VITALS: Ht 157.5 cm; Wt 72.0 kg
[~2017-07-12 05:15] MED LIST changes: -ACET325S PO; -ACET500C5 PO; -ALBU8.5H3 INH; -AZIT250T6 PO; -AZIT250T94 PO; -BACTDS PO; -CEPH-443 PO; -CEPH250S33 PO; -CIPR500T4 PO; -D-ME473S18 PO; -FLUT9.9S NASAL; -HYDR-906 PO; -HYDR28OI7 TP; -IBUP-1542 PO; -IBUP-1706 PO; -METO10TA92 PO; -NAPR-260 PO; -ONDA4TAB14 PO; -PANT40TA3 PO; -POLY10DR19 RIGHT EYE; +PRENAT PO; -RANI150T9 PO; -SUCR1TAB56 PO; -UDROBDM PO
[2017-07-12 05:43] VITALS: Ht 157.5 cm; Wt 72.0 kg
[2017-07-12 05:44] VITALS: BP 107/63; PULSE 65; RESP 19
[2017-07-12] MEDS ORDERED: FERR325T5 PO (05:46)
--- NOTE | 2017-07-12 06:48 | RADRPT ---
PROCEDURE: OB ultrasound for biophysical profile CLINICAL INDICATION: Decreased movement TECHNIQUE: Multiple sonographic images of the pelvis were obtained. Transabdominal views of the g ravid uterus are available for review. The images were reviewed on a PACS workstation. COMPARISON: OB ultrasound, biophysical profile dated 05/01/2017 FINDINGS: breathing movement = 2/2 tone = 2/2 motion = 2/2 MANE = 2/2 MANE = 10.5 cm Single live intrauterine with cardiac activity of 157 bpm. position is cephal ic. The placenta is anterior. IMPRESSION: 1. Single live intrauterine gestation. 2. Biophysical profile = 05/04. 3. MANE = 10.5 cm. RPTAT: HH .Yessy Stanley MD, Date Time Electronically viewed and signed by .Yessy Stanley MD, on 07/12/2017 06:47 .G/
[2017-07-12 07:06] LABS: ADD UMIC NO; UR ASCORBIC ACID NEGATIVE (NEGATIVE); UR BILIRUBIN (Dip) NEGATIVE (NEGATIVE); UR BLOOD (Dip) NEGATIVE (NEGATIVE); UR CLARITY CLEAR (CLEAR); UR COLOR STRAW (YELLOW); UR GLUCOSE (Dip) NEGATIVE (NEGATIVE); UR KETONES (Dip) NEGATIVE (NEGATIVE); UR LEUKOCYTE ESTERASE (Dip) NEGATIVE Leu/ul (NEGATIVE); UR NITRITE (Dip) NEGATIVE (NEGATIVE); UR SPECIFIC GRAVITY (Dip) 1.003 (1.003-1.030); UR TOTAL PROTEIN (Dip) NEGATIVE (NEGATIVE); UR UROBILINOGEN (Dip) NEGATIVE (NEGATIVE)
--- NOTE | 2017-07-12 07:08 | RADRPT ---
PROCEDURE: US OB. CLINICAL INDICATION: Size and dates TECHNIQUE: Multiple sonographic images of the pelvis and gravid uterus were obtained. The images were reviewed on a PACS workstation. COMPARISON: US PELVIS 07/12/2017 FINDINGS: There is a single viable intrauterine gestation. Cardiac activity is present with 134 beats per min [place]. There is a vertex presentation. The placenta is anterior left. There is no evidence for an abruption or placenta previa. Measurements were made in order to determine age. The results are as follows: BPD =9.0 cm HC =32.8 cm AC =34 cm FL =6.8 cm Estimated gestational age of approximately 36 weeks and 4 days based on ultrasound measurements. Clinical age: 37 weeks and 5 days. The estimated date of delivery is 08/05/17, based on ultrasound measurements. The EFW = 3072 g, 39.6%, based on LMP age. RPTAT: AA IMPRESSION: Single viable intrauterine gestation of approximately 36 weeks and 4 days based on ultrasound measu rements. .Bulmaro Lomax MD, Date Time Electronically viewed and signed by .Bulmaro Lomax MD, on 07/12/2017 07:08 .S/
[2017-07-12 07:47] LABS: BASOPHILS % 0.4 % (0.0-2.0); EOSINOPHILS # 0.1 10^3/ul (0.0-0.5); EOSINOPHILS % 0.6 % (0.0-7.0); HEMOGLOBIN 9.4 g/dl (12.0-16.0); LYMPHOCYTES # 1.8 10^3/ul (0.8-2.9); LYMPHOCYTES % 21.2 % (15.0-51.0); MEAN CORPUSCULAR HEMOGLOBIN 26.2 pg (29.0-33.0); MEAN CORPUSCULAR HGB CONC 33.6 g/dl (32.0-37.0); MEAN PLATELET VOLUME 10.5 fl (7.4-10.4); MONOCYTE # 0.7 10^3/ul (0.3-0.9); MONOCYTES % 8.7 % (0.0-11.0); NEUTROPHIL # 5.6 10^3/ul (1.6-7.5); PLATELET COUNT 259 10^3/UL (140-415); RED BLOOD COUNT 3.59 10^6/ul (4.20-5.40); RED CELL DISTRIBUTION WIDTH 14.7 % (11.5-14.5); WHITE BLOOD COUNT 8.5 10^3/ul (4.8-10.8)
[2017-07-12 08:17] LABS: ALBUMIN 3.5 g/dl (3.3-4.9); ALBUMIN/GLOBULIN RATIO 0.97; BILIRUBIN,INDIRECT 0.4 mg/dl (0-1.1); BILIRUBIN,TOTAL 0.4 mg/dl (0.2-1.3); CALCIUM 8.8 mg/dl (8.4-10.2); CREATININE 0.62 mg/dl (0.44-1.00); POTASSIUM 3.8 mmol/L (3.5-5.1); TOTAL PROTEIN 7.1 g/dl (6.1-8.1)
--- NOTE | 2017-07-12 17:48 | QN ---
Documentation Comment iup 37 weeks co of some "shaking this am" not seizure and pt was aware vss exam wnl lab and us wnl a/p iup 37 weeks false labor dc home SHERIF HOOKS MD Jul 12, 2017 17:48
== END 2017-07-12 08:55 | disposition home or self-care (01) ==
LOC: OBT 05:15 → L-D 05:20 → OBT 08:55
PROVIDERS: ATTEND Obstetrics & Gynecology
DX: O47.1 False labor at or after 37 completed weeks of gestation (principal); Z3A.37 37 weeks gestation of pregnancy
CPT/HCPCS: 76815; 76818; 80053; 81003; 85025; Z7500; G0463

== ENCOUNTER 2017-08-01 02:59 | Inpatient (IN) | payer OTHER ==
[~2017-08-01] VITALS: Ht 157.5 cm; Wt 72.1 kg
[~2017-08-01 02:59] MED LIST changes: +FERR325T5 PO; -PRENAT PO
[2017-08-01 03:52] VITALS: BP 121/67; PULSE 66; RESP 20
[2017-08-01] MEDS ORDERED: OXYTOCIN 30 UNITS/LR 500 ML IV SCH ×3 (04:00)
[2017-08-01] MEDS ORDERED: BUTORPHANOL 2 MG INJ IV PRN (04:00)
[2017-08-01] MEDS ORDERED: MISOPROSTOL 200 MCG TAB PR PRN ×2 (04:00→21:30)
[2017-08-01] MEDS ORDERED: LIDOCAINE 1% (MPF) 30 ML INJ INJ PRN (04:00)
[2017-08-01] MEDS ORDERED: ONDANSETRON 4 MG INJ IV PRN ×2 (04:00→07:30)
[2017-08-01] MEDS ORDERED: IBUPROFEN 600 MG TAB PO PRN (04:00)
[2017-08-01] MEDS ORDERED: METHYLERGONOVINE 0.2 MG INJ IM PRN ×2 (04:00→21:30)
[2017-08-01] MEDS ORDERED: OXYTOCIN 30 UNITS/LR 500 ML IV PRN ×2 (04:00→21:30)
[2017-08-01] MEDS ORDERED: CARBOPROST 250 MCG INJ IM PRN ×2 (04:00→21:30)
[2017-08-01] MEDS: LACTATED RINGER'S 1,000 ML IV SCH ×3 (04:47→18:06)
[2017-08-01] MEDS ORDERED: LACTATED RINGER'S 1,000 ML IV PRN (05:00)
--- NOTE | 2017-08-01 05:58 | TRIAGE ---
OB Triage Datetime Report Generated by CPN: 08/01/2017 05:58 Datetime: 08/01/2017 05:05 Assessment Type: Admission Assessment Vaginal Bleeding: None Maternal Assessment Level of Consciousness: Fully Conscious DTR's/Clonus: DTRs 2+; No Clonus Headache: Denies Blurred Vision: No Respiratory Effort: Unlabored Breath Sounds, Left: Clear and Equal Breath Sounds, Right: Clear and Equal Nausea/Vomiting: Present RUQ Epigastric Pain: Denies Lower Extremities Edema: Bilateral Lower Extremities Degree: 1+ Upper Extremities Edema: None Degree: None Facial Edema: None Fall Risk Assessment History of Falling: (0) No Secondary Diagnosis: (0) No Ambulatory Aid: (0) Bedrest/Nurse Assist IV Therapy: (20) Yes Gait: (0) Normal/Bedrest/Immobile Labor Evaluation Frequency: 4-7 Duration (sec)2399: 50-130 Quality: Mild Pattern: Normal: <= 5 Contractions in 10 Minutes Resting Tone [place]: Relaxed Heart Rate FHR Baseline Rate: 120 Variability: Moderate 6-25 bpm Accelerations: 15X15 Decelerations: None Category: Category I Pain Assessment Pain Scale: 8 Pain Presence: Intermittent Pain Type: Contraction Pain Location: Abdomen; Back; Perineum Pain Goal: 6 Pain Assessment Comments: Pt denies need for pain med at this time Vaginal Exam Dilatation (cms): 3.0 Effacement (%): 90 Station: -2 Membrane Status: Intact Datetime: 08/01/2017 03:40 Stage of : OB Triage Datetime: 08/01/2017 03:35 Time of Arrival: 08/01/2017 02:45 EGA: 40.4 Arrived By: Wheelchair Arrived From: Home Chief Complaint: c/o ucs Movement: Present Contractions: Regular Time Contractions Began: 07/31/2017 03:00 Contractions: q5 Rupture of Membranes: Denies Vaginal Bleeding: Normal Show Vaginal Discharge: Present Recent Sexual Intercouse: Denies Abdominal Trauma: Not Applicable Patient Complaints: Contractions Additional Patient Complaints: Pt refuses to haaave Dr Subramanian care for her and asks that laborist assume care Time Provider Notified: 08/01/2017 03:40 Provider Notified: Dr Soto Initial Plan: EFM,SVE Datetime: 08/01/2017 03:31 Labor Evaluation Frequency: 4-5 Monitor Mode: External Duration (sec)2399: 60-90 Quality: Moderate Pattern: Normal: <= 5 Contractions in 10 Minutes Resting Tone [place]: Relaxed Heart Rate FHR Baseline Rate: 125 Monitor Mode: External US FHR Baseline Changes: No Baseline Change Variability: Moderate 6-25 bpm Accelerations: 15X15 Decelerations: None Category: Category I Pain Assessment Pain Scale: 8 Pain Presence: Intermittent Pain Type: Contraction Pain Location: Abdomen Vaginal Exam Dilatation (cms): 3.0 Effacement (%): 90 Station: -2 Exam By: Kervin Valladares Membrane Status: Intact Vaginal Bleeding: Normal Show Cervix, Consistency: Soft Cervix, Position: Posterior Presentation 'A': Cephalic Datetime: 08/01/2017 03:05 Stage of : OB Triage Maternal Assessment Level of Consciousness: Fully Conscious Headache: Denies Blurred Vision: No Nausea/Vomiting: Denies RUQ Epigastric Pain: Denies Labor Evaluation Frequency: placed Monitor Mode: External Resting Tone [place]: Relaxed Heart Rate FHR Baseline Rate: 120 Monitor Mode: External US Pain Assessment Pain Scale: 8 Pain Presence: Intermittent Pain Type: Contraction Pain Location: Abdomen Datetime: 07/12/2017 08:44 Labor Evaluation Frequency: IRREG Monitor Mode: External Duration (sec)2399: 50-90 Quality: Mild Pattern: Normal: <= 5 Contractions in 10 Minutes Resting Tone [place]: Relaxed Contraction Comments: PT DENIES FEELING UC'S Heart Rate FHR Baseline Rate: 135 Monitor Mode: External US Variability: Moderate 6-25 bpm Accelerations: 15X15 Decelerations: None Category: Category I Datetime: 07/12/2017 08:00 Assessment Type: Triage (Annotations: PT REPORTS FEELING BETTER ) Maternal Assessment Level of Consciousness: Fully Conscious DTR's/Clonus: DTRs 2+; No Clonus Headache: Denies Blurred Vision: No Respiratory Effort: Unlabored; Regular Rhythm; Equal Expansion Breath Sounds, Left: Clear and Equal Breath Sounds, Right: Clear and Equal Nausea/Vomiting: Denies RUQ Epigastric Pain: Denies Facial Edema: None Fall Risk Assessment History of Falling: (0) No Secondary Diagnosis: (0) No Ambulatory Aid: (0) Bedrest/Nurse Assist IV Therapy: (0) No Gait: (0) Normal/Bedrest/Immobile Mental Status: (0) Oriented to Own Ability Fall Score: 0 Fall Risk Score Definition: No Risk: No action required Datetime: 07/12/2017 07:54 Labor Evaluation Frequency: IRREG Monitor Mode: External Duration (sec)2399: 50-70 Quality: Strong Pattern: Normal: <= 5 Contractions in 10 Minutes Resting Tone [place]: Relaxed Contraction Comments: NST REACTIVE FOR GESTATIONAL AGE Heart Rate FHR Baseline Rate: 130 Monitor Mode: External US Variability: Moderate 6-25 bpm Accelerations: 15X15 Decelerations: None Category: Category I Datetime: 07/12/2017 07:12 Time of Arrival: 07/12/2017 05:06 EGA: 37.5 Arrived By: Ambulatory Arrived From: Home Chief Complaint: SHAKING Movement: Present Contractions: Denies/Absent Rupture of Membranes: Denies Vaginal Bleeding: None Vaginal Discharge: Denies Recent Sexual Intercouse: Denies Abdominal Trauma: Not Applicable Patient Complaints: Other Time Provider Notified: 07/12/2017 05:50 Provider Notified: SALCEDA Initial Plan: CEFM, CBC, CMP, UA U/S BPP, EFW, MANE Datetime: 07/12/2017 07:00 Labor Evaluation Frequency: NONE Monitor Mode: External Quality: Mild Pattern: Normal: <= 5 Contractions in 10 Minutes Resting Tone [place]: Relaxed Heart Rate FHR Baseline Rate: 125 Monitor Mode: External US Variability: Moderate 6-25 bpm Accelerations: 15X15 Decelerations: None Category: Category I Datetime: 07/12/2017 06:00 Labor Evaluation Frequency: X1 Monitor Mode: External Duration (sec)2399: 70 Quality: Mild Pattern: Normal: <= 5 Contractions in 10 Minutes Resting Tone [place]: Relaxed Heart Rate FHR Baseline Rate: 120 Monitor Mode: External US Variability: Moderate 6-25 bpm Accelerations: 15X15 Decelerations: None Category: Category I Datetime: 07/12/2017 05:30 Assessment Type: Triage Maternal Assessment Level of Consciousness: Fully Conscious DTR's/Clonus: DTRs 2+; No Clonus Headache: Denies Blurred Vision: No Respiratory Effort: Unlabored; Regular Rhythm; Equal Expansion Breath Sounds, Left: Clear and Equal Breath Sounds, Right: Clear and Equal Nausea/Vomiting: Denies RUQ Epigastric Pain: Denies Facial Edema: None Temperature Route: Oral Fall Risk Assessment History of Falling: (0) No Secondary Diagnosis: (0) No Ambulatory Aid: (0) Bedrest/Nurse Assist IV Therapy: (0) No Gait: (0) Normal/Bedrest/Immobile Mental Status: (0) Oriented to Own Ability Fall Score: 0 Fall Risk Score Definition: No Risk: No action required Pain Assessment Pain Scale: 0 Pain Presence: None/Denies Pain Type: N/A Datetime: 05/01/2017 22:42 Stage of : OB Triage Datetime: 05/01/2017 22:00 Labor Evaluation Frequency: None Monitor Mode: External Heart Rate FHR Baseline Rate: 140 Monitor Mode: External US FHR Baseline Changes: No Baseline Change Variability: Moderate 6-25 bpm Accelerations: 15X15 Decelerations: None Category: Category I Datetime: 05/01/2017 21:52 Stage of : OB Triage Datetime: 05/01/2017 21:06 Monitor Mode: External US Datetime: 05/01/2017 20:57 Assessment Type: Triage Maternal Assessment Level of Consciousness: Fully Conscious DTR's/Clonus: DTRs 2+; No Clonus Headache: Denies Blurred Vision: No Respiratory Effort: Unlabored; Regular Rhythm; Equal Expansion Breath Sounds, Left: Clear and Equal Breath Sounds, Right: Clear and Equal Nausea/Vomiting: Denies RUQ Epigastric Pain: Denies Lower Extremities Edema: None Degree: None Upper Extremities Edema: None Degree: None Facial Edema: None Fall Risk Assessment History of Falling: (0) No Secondary Diagnosis: (0) No Ambulatory Aid: (0) Bedrest/Nurse Assist IV Therapy: (0) No Gait: (0) Normal/Bedrest/Immobile Mental Status: (0) Oriented to Own Ability Fall Score: 0 Fall Risk Score Definition: No Risk: No action required Datetime: 05/01/2017 20:50 Monitor Mode: External Contraction Comments: Applied Monitor Mode: External US Comments: Applied Datetime: 05/01/2017 20:40 EGA: 27.3 Time Provider Notified: 05/01/2017 21:40 Initial Plan: EFM X2, UA, EFW, MANE, BPP
[2017-08-01] MEDS ORDERED: FENTAnyl 2MCG/ML-ROPIV 0.2% 100 ML ONE (06:50)
[2017-08-01] MEDS ORDERED: FENTAnyl 2MCG/ML-ROPIV 0.2% 100 ML BAG EPI SCH (07:30)
[2017-08-01] MEDS ORDERED: DIPHENHYDRAMINE 50 MG INJ IV PRN (07:30)
[2017-08-01] MEDS ORDERED: NALOXONE (0.4 MG/ML) INJ IV PRN (07:30)
--- NOTE | 2017-08-01 19:30 | HP ---
Date/Time of Note Date/Time of Note DATE: 08/01/17 TIME: 19:24 OB - History Hx of Present Free Text/Dictation . : 1 Para: 0 Care: Good Care Obstetrical Complications: None Past Family/Social History * Past Medical, Surgical, Family and Obstetric Histories reviewed from chart. Rubella: immune RPR/VDRL: Negative GBS Status: Negative HBsAG: Negative OB Admission Exam Vital Signs Vital Signs Vital Signs Date Time Temp Pulse Resp B/P Pulse Ox O2 Delivery O2 Flow Rate FiO2 08/01/17 03:52 98.1 66 20 121/67 Room Air Physical Exam HEENT: WNL Heart: Rhythm Normal Abdomen: WNL Extremities: Normal Reflexes: Normal Cervical Dilatation: 3cm Effacement: 75% Station: +1 Membranes: Intact Amniotic Fluid: Clear Heart Rate: 140's Accelerations: Accelerations Present Decelerations: No Decelerations Varibility: Moderate Contractions on Admission: 6-10 Minutes Apart Intensity: Mild Last 72 hours Lab Results CBC & BMP 08/01/17 05:20 OB Assessment/Plan Other Assessment: Laboratory Tests Test 08/01/17 05:20 White Blood Count 9.810^3/ul Red Blood Count 4.0810^6/ul Hemoglobin 11.5g/dl Hematocrit 32.6% Mean Corpuscular Volume 79.9fl Mean Corpuscular Hemoglobin 28.2pg Mean Corpuscular Hemoglobin Concent 35.3g/dl Red Cell Distribution Width 21.5% Platelet Count 40936^3/UL Mean Platelet Volume 11.1fl Neutrophils % 78.4% Lymphocytes % 13.6% Monocytes % 6.4% Eosinophils % 0.1% Basophils % 0.4% Nucleated Red Blood Cells % 0.0/100WBC Neutrophils # 7.710^3/ul Lymphocytes # 1.310^3/ul Monocytes # 0.610^3/ul Eosinophils # 0.010^3/ul Basophils # 0.010^3/ul Nucleated Red Blood Cells # 0.010^3/ul Prothrombin Time 12.1Sec Prothrombin Time Ratio 0.9 INR International Normalized Ratio 0.90 Activated Partial Thromboplast Time 25.1Sec Hepatitis B Surface Antigen NEGATIVE Current Medications Medications (Trade) Dose Ordered Sig/Tracy Route PRN Reason Start Time Stop Time Status Last Admin Dose Admin Lactated Ringer's 1,000 ml @ 125 mls/hr Q8H IV 08/01/17 03:54 08/01/17 18:06 Oxytocin/Lactated Ringer's 500 ml @ 0 mls/hr TITRATE IV 08/01/17 04:00 08/01/17 12:46 Butorphanol Tartrate (Stadol) 2 mg Q2H PRN IV PAIN 08/01/17 04:00 Lidocaine 30 ml 30 ml ONCE PRN INJ EPISIOTOMY/TEARING 08/01/17 04:00 Oxytocin/Lactated Ringer's 500 ml @ 125 mls/hr ONCE -MAY REPEAT X1 IV 08/01/17 04:00 Oxytocin/Lactated Ringer's 500 ml @ 125 mls/hr ONCE IV 08/01/17 04:00 08/01/17 18:44 Ibuprofen 600 mg 600 mg ONCE PRN PO Mild Pain (Pain Score 1-3) 08/01/17 04:00 Lactated Ringer's 1,000 ml @ 2,000 mls/hr Q30M PRN IV PRE-EPIDURAL BOLUS 08/01/17 05:00 08/01/17 06:42 Oxytocin/Lactated Ringer's 500 ml @ 0 mls/hr ONCE PRN IV For Hemorrhage Management 08/01/17 04:00 Methylergonovine Maleate (Methergine) 0.2 mg ONCE PRN IM VAGINAL BLEEDING 08/01/17 04:00 Carboprost Tromethamine (Hemabate) 250 mcg ONCE PRN IM VAGINAL BLEEDING 08/01/17 04:00 Misoprostol (Cytotec) 1,000 mcg ONCE PRN NC VAGINAL BLEEDING 08/01/17 04:00 Ondansetron HCl 4 mg 4 mg Q4H PRN IV NAUSEA AND/OR VOMITING 08/01/17 04:00 Fentanyl/ Ropivacaine 100 ml @ ud STK-MED ONCE .ROUTE 08/01/17 06:50 08/01/17 06:51 DC Naloxone HCl (Narcan) 0.1 mg Q2M PRN IV FOR RESP RATE 8 OR LESS 08/01/17 07:30 08/02/17 07:29 Diphenhydramine HCl (Benadryl) 25 mg Q6H PRN IV ITCHING 08/01/17 07:30 08/02/17 07:29 Ondansetron HCl (Zofran Inj) 4 mg Q6H PRN IV NAUSEA AND/OR VOMITING 08/01/17 07:30 08/02/17 07:29 Fentanyl/ Ropivacaine 100 ml EPIDURAL INFUSION EPI 08/01/17 07:30 08/01/17 16:33 JOSE MARSH MD Aug 01, 2017 19:30
--- NOTE | 2017-08-01 19:37 | LDN ---
Date/Time of Note Date/Time of Note DATE: 08/01/17 TIME: 19:31 Delivery Summary August 01, 2017 As I mentioned in the history and physical this patient is a 36 years old primigravida with due date of 07/28/2017 who came about 3:00 at night and in labor with a progress to complete dilatation and her delivery was accomplished using vacuum contraction and over a midline episiotomy. Episiotomy was done due to lack of progress to delivery excessive blood loss and prolonged second stage III and a half hours Weeks of Gestation 40 Assisted Vaginal Delivery: Vacuum Meconium: none Episiotomy: Yes Indication for episiotomy See the note above Anesthesia type: Epidural Estimated blood loss: 350 Sponge & Needle done & correct: Yes All needle counts correct: Yes Any foreign bodies felt in the: No Problems: Infant Delivery Information Sex Infant Sex: female Apgars 1 Minute: 9 5 Minute: 9 Suctioning Nose & mouth suctioned at fawn: Yes Delee suction performed: No Umbilical Cord Umbilical cord with: 3 Vessels Cord presentations: no nuchal cord Nuchal cord present X: 1 Cord Blood was obtained: Yes Mother & Baby Disposition Disposition Mom transferred to: Med/Surg JOSE MARSH MD Aug 01, 2017 19:37
[2017-08-01 21:25] VITALS: BP 107/56; PULSE 77; RESP 20
[2017-08-01] MEDS ORDERED: OXYCODONE/ASPIRIN (4.88/325) TAB PO PRN ×2 (21:30)
[2017-08-01] MEDS ORDERED: LANOLIN 7 GM TUBE TOP PRN (21:30)
[2017-08-01] MEDS ORDERED: WITCH HAZEL/GLYCERIN PAD PR PRN (21:30)
[2017-08-01] MEDS ORDERED: ZOLPIDEM 5 MG TAB PO PRN (21:30)
[2017-08-01] MEDS ORDERED: BENZOCAINE 20% 56 ML SPRAY TOP PRN (21:30)
[2017-08-02 04:19] VITALS: BP 105/61; PULSE 70; RESP 20
[2017-08-02] MEDS: IBUPROFEN 600 MG TAB PO SCH ×4 (05:19→18:00)
[2017-08-02 08:06] VITALS: BP 113/64; PULSE 67; RESP 14
[2017-08-02] MEDS: SENNA/DOCUSATE NA (8.6MG/50MG) TAB PO SCH ×2 (08:12→21:00)
[2017-08-02 11:14] VITALS: BP 98/53; PULSE 76; RESP 16
[2017-08-02] MEDS: FERROUS SULFATE (EC) 325 MG TAB PO SCH ×2 (12:45→21:00)
--- NOTE | 2017-08-02 14:13 | QN ---
Documentation Comment pt doing well no DOLL no sob no chest pain vss exam wnl a/p ppd1 anemia hh6.9 will repeat HH as patient currently asymptomatic precautiions given. hh pending SHERIF HOOKS MD Aug 02, 2017 14:13
[2017-08-02 15:55] VITALS: BP 112/67; PULSE 73; RESP 14
[2017-08-02 20:46] VITALS: BP 108/55; PULSE 76; RESP 18
[2017-08-03] MEDS: IBUPROFEN 600 MG TAB PO SCH ×3 (00:01→11:17)
[2017-08-03 04:00] VITALS: BP 107/59; PULSE 73; RESP 20
[2017-08-03 07:25] VITALS: BP 108/56; PULSE 75; RESP 19
[2017-08-03] MEDS ORDERED: INFLUENZA VIRUS VACCINE 0.5 ML (DISPENSING) IM* ONE (09:00)
[2017-08-03] MEDS ORDERED: DIPHTH/TET/ACEL PERTUSS (ADULT) 0.5 ML VIAL IM* ONE (09:00)
[2017-08-03] MEDS: SENNA/DOCUSATE NA (8.6MG/50MG) TAB PO SCH (09:49)
[2017-08-03] MEDS: FERROUS SULFATE (EC) 325 MG TAB PO SCH ×2 (09:49→14:20)
--- NOTE | 2017-08-03 11:44 | QN ---
Documentation Comment PPD#1 is stable afebrile tolerates Diet No VB +BM +voids VS stable GEn NAD Abd soft NT ND Genitalia No blood at perinium --->Discharge Home tomorrow YSABEL HERNÁNDEZ M.D. Aug 03, 2017 11:44
--- NOTE | 2017-08-03 11:45 | DS ---
Date/Time of Note Date/Time of Note DATE: 08/03/17 TIME: 11:44 Discharge Summary Admission/Discharge Info Admit Date/Time Aug 01, 2017 at 03:40 Discharge Date/Time Jul Discharge Diagnosis Patient Condition: Good Procedures vaginal delivery Hospital Course uneventful Home Meds Reported Medications Ferrous Sulfate (Ferrous Sulfate) 325 Mg Tablet.dr, 325 MG PO TID 07/12/17 Primary Care Provider Karine Koenig Pending Labs Laboratory Tests Test 08/02/17 13:42 08/03/17 10:26 White Blood Count 15.610^3/ul (4.8-10.8) 14.210^3/ul (4.8-10.8) Red Blood Count 2.4910^6/ul (4.20-5.40) 2.5110^6/ul (4.20-5.40) Hemoglobin 7.1g/dl (12.0-16.0) 7.1g/dl (12.0-16.0) Hematocrit 20.3% (37.0-47.0) 21.7% (37.0-47.0) Mean Corpuscular Volume 81.5fl (82.0-101.0) 86.5fl (82.0-101.0) Mean Corpuscular Hemoglobin 28.5pg (29.0-33.0) 28.3pg (29.0-33.0) Mean Corpuscular Hemoglobin Concent 35.0g/dl (32.0-37.0) 32.7g/dl (32.0-37.0) Red Cell Distribution Width 22.6% (11.5-14.5) 23.3% (11.5-14.5) Platelet Count 81689^3/UL (140-415) 61605^3/UL (140-415) Mean Platelet Volume 10.5fl (7.4-10.4) 10.5fl (7.4-10.4) Neutrophils % 80.9% (39.0-77.0) 81.8% (39.0-77.0) Lymphocytes % 12.0% (15.0-51.0) 10.8% (15.0-51.0) Monocytes % 6.1% (0.0-11.0) 5.4% (0.0-11.0) Eosinophils % 0.1% (0.0-7.0) 0.5% (0.0-7.0) Basophils % 0.1% (0.0-2.0) 0.3% (0.0-2.0) Nucleated Red Blood Cells % 0.0/100WBC (0.0-0.0) 0.0/100WBC (0.0-0.0) Neutrophils # 12.610^3/ul (1.6-7.5) 11.610^3/ul (1.6-7.5) Lymphocytes # 1.910^3/ul (0.8-2.9) 1.510^3/ul (0.8-2.9) Monocytes # 1.010^3/ul (0.3-0.9) 0.810^3/ul (0.3-0.9) Eosinophils # 0.010^3/ul (0.0-0.5) 0.110^3/ul (0.0-0.5) Basophils # 0.010^3/ul (0.0-0.1) 0.010^3/ul (0.0-0.1) Nucleated Red Blood Cells # 0.010^3/ul (0.0-0.0) 0.010^3/ul (0.0-0.0) YSABEL HERNÁNDEZ M.D. Aug 03, 2017 11:45
== END 2017-08-03 17:51 | disposition home or self-care (01) | DRG 775 ==
LOC: OBT 02:59 → L-D 03:01 → OBT 03:40 → L-D 03:40 → PP1 21:26
PROVIDERS: ADMIT Obstetrics & Gynecology; ATTEND Obstetrics & Gynecology
PROC: 10D07Z6 Extraction of Products of Conception, Vacuum, Via Natural or Artificial Opening (ICD-10-PCS; principal; 2017-08-01)
PROC: 0W8NXZZ Division of Female Perineum, External Approach (ICD-10-PCS; 2017-08-01)
DX: O48.0 Post-term pregnancy (principal); O90.81 Anemia of the puerperium; Z37.0 Single live birth; Z3A.40 40 weeks gestation of pregnancy
CPT/HCPCS: 62319; 85025; 85610; 85730; 86592; 86900; 86901; 87340; 90686; 90715; 99464; G0463; J2590; J3010; J7120